=== PATIENT | male | born 1950 | race Caucasian/White ===

== ENCOUNTER 2016-12-10 10:59 | Emergency (ER) | payer MEDICARE, OTHER ==
[~2016-12-10] VITALS: Ht 182.9 cm; Wt 77.0 kg
[2016-12-10] VITALS (8 sets, daily range): BP systolic 138–156; BP diastolic 72–87; PULSE 71–84; RESP 16; TEMP 97.7–97.9; O2SAT 98–100
[2016-12-10] MEDS ORDERED: ONDANSETRON HCL 4 MG/2 ML VIAL IVP ONE (11:15)
[2016-12-10] MEDS ORDERED: DIPHTH/TETANUS/ACEL PERTUSSIS (BOOSTER) 0.5 ML VIAL/PFS IM ONE (11:15)
[2016-12-10] MEDS ORDERED: MORPHINE SULFATE 4 MG/ML INJ IV ONE (11:15)
[2016-12-10] MEDS ORDERED: ceFAZolin 2 GM PREMIX 50 ML IV ONE (11:15)
[2016-12-10] MEDS: SODIUM CHLORIDE 0.9% FLUSH 5 ML FLUSH IVF PRN ×3 (11:25→12:47)
--- NOTE | 2016-12-10 11:27 | PD ---
HPI . Right thumb injury Chief Complaint: Laceration/Skin Injury Time Seen by Provider: 11:05 Travel History International Travel<30 days: No Contact w/Intl Traveler<30days: No History of Present Illness HPI Patient presents immediately status post taking his right thumb. A table saw. He was wearing a glove. He does not know the date of his last tetanus shot. He denies any known drug allergies. History of diet-controlled diabetes. [facility] Social History Tobacco Use: No Allergies-Medications (Allergen,Severity, Reaction): Coded Allergies: Clindamycin (Verified Allergy, Severe, Anaphylaxis, 12/10/16) Reported Meds & Prescriptions Reported Meds & Active Scripts Active No Active Prescriptions or Reported Medications Review of Systems Except as stated in HPI: all other systems reviewed are Neg Musculoskeletal: Positive: Arthralgias (right thumb) Skin: Positive Other (wound, right thumb) Physical Exam Narrative GENERAL: Appropriately concerned. SKIN: Pale and diaphoretic. HEAD: Atraumatic. Normocephalic. EYES: Pupils equal and round. ENT: No nasal bleeding or discharge. Mucous membranes pink and moist. NECK: Trachea midline. CARDIOVASCULAR: Regular rate and rhythm. RESPIRATORY: No accessory muscle use. GASTROINTESTINAL: Abdomen soft, non-tender, nondistended. MUSCULOSKELETAL: Right thumb is amputated at the IP joint. Bleeding is controlled. We have the distal portion of thumb moistened and on ice. NEUROLOGICAL: Awake and alert. No obvious cranial nerve deficits. Motor grossly within normal limits. Normal speech. PSYCHIATRIC: Appropriate mood and affect; insight and judgment normal. Data Data Last Documented VS Vital Signs Date Time Temp Pulse Resp B/P Pulse Ox O2 Delivery O2 Flow Rate FiO2 12/10/16 11:50 75 16 153/87 99 Room Air 12/10/16 10:59 97.7 Orders Basic Metabolic Panel (Bmp) (12/10/16 11:05) Complete Blood Count With Diff (12/10/16 11:05) Prothrombin Time / Inr (Pt) (12/10/16 11:05) Act Partial Throm Time (Ptt) (12/10/16 11:05) Iv Access Insert/Monitor (12/10/16 11:05) Ecg Monitoring (12/10/16 11:05) Oximetry (12/10/16 11:05) Oxygen Administration (12/10/16 11:05) Cefazolin 2 Gm Premix (Ancef 2 Gm Premix (12/10/16 11:15) Morphine Inj (Morphine Inj) (12/10/16 11:15) Ondansetron Inj (Zofran Inj) (12/10/16 11:15) Flkb-Xho-Iklumc (Booster) Inj (Boostrix (12/10/16 11:15) Sodium Chloride 0.9% Flush (Ns Flush) (12/10/16 11:15) Finger (Jjq7fud) (12/10/16 11:07) Hydromorphone Pf Inj (Dilaudid Pf Inj) (12/10/16 11:45) Labs Laboratory Tests Test 12/10/16 11:05 White Blood Count 7.2 TH/MM3 Red Blood Count 5.69 MIL/MM3 Hemoglobin 12.6 GM/DL Hematocrit 39.2 % Mean Corpuscular Volume 68.9 FL Mean Corpuscular Hemoglobin 22.1 PG Mean Corpuscular Hemoglobin 32.1 % Concent Red Cell Distribution Width 13.2 % Platelet Count 220 TH/MM3 Mean Platelet Volume 9.2 FL Neutrophils (%) (Auto) 39.3 % Lymphocytes (%) (Auto) 50.5 % Monocytes (%) (Auto) 6.9 % Eosinophils (%) (Auto) 2.1 % Basophils (%) (Auto) 1.2 % Neutrophils # (Auto) 2.8 TH/MM3 Lymphocytes # (Auto) 3.6 TH/MM3 Monocytes # (Auto) 0.5 TH/MM3 Eosinophils # (Auto) 0.2 TH/MM3 Basophils # (Auto) 0.1 TH/MM3 CBC Comment AUTO DIFF Differential Comment AUTO DIFF CONFIRMED Target Cells 1+ Ovalocytes 1+ Prothrombin Time 11.0 SEC Prothromb Time International 1.0 RATIO Ratio Activated Partial 20.8 SEC Thromboplast Time Sodium Level 141 MEQ/L Potassium Level 3.4 MEQ/L Chloride Level 102 MEQ/L Carbon Dioxide Level 25.7 MEQ/L Anion Gap 13 MEQ/L Blood Urea Nitrogen 15 MG/DL Creatinine 1.30 MG/DL Estimat Glomerular Filtration 55 ML/MIN Rate Random Glucose 138 MG/DL Calcium Level 9.0 MG/DL MDM Medical Decision Making Medical Screen Exam Complete: Yes Emergency Medical Condition: Yes Differential Diagnosis Differential diagnosis includes amputation of the right thumb with or without a viable distal portion of the thumb. Narrative Course Patient presents with an amputated right thumb at the IP joint. Dr. Gillis was immediately contacted. He feels that the patient needs to be transferred to a facility which can do a reimplantation. Dr. Mesa at [facility] will see the patient. He does not believe that the thumb can successfully be reimplanted. But, he is willing to look. He has requested that the patient be transferred to the medicine service. Those arrangements have been made. The patient has been made aware that successful reimplantation is not likely. Physician Communication Physician Communication Dr. Gillis suggested transfer to [facility]. I spoke with Dr. Mesa who feels that successful replantation is not likely. He asks that I transfer the patient to medicine with him consulting. I have subsequently spoken with Dr. Kim who will be the accepting physician. Diagnosis Primary Impression: Amputation of right thumb Qualified Code: S68.011A - Amputation of right thumb, initial encounter Scripts No Active Prescriptions or Reported Meds Disposition: 70 TRANSFER TO OTHER FACILITY Condition: Stable Mary Castanon MD Dec 10, 2016 11:27
--- NOTE | 2016-12-10 11:35 | RADHPO ---
EXAM DATE/TIME: 12/10/2016 11:17 [place] COMPARISON: No previous studies available for comparison. INDICATIONS : Right 1st digit ampuation due to saw. MEDICAL HISTORY : Diabetic. SURGICAL HISTORY : None. ENCOUNTER: Initial ACUITY: 1 day PAIN SCORE: 10/10 LOCATION: Right first digit/hand FINDINGS: 4 views of the right reveal acute amputation involving the distal phalanx. A few bone fragments remai n from the base of that phalanx. The middle phalanx appears intact as does the metacarpal bone. There is soft tissue amputation as well. No radiopaque foreign body. CONCLUSION: Amputation of the distal phalanx as detailed above. Manas Mcmanus Jr., MD on December 10, 2016 at 11:29 Board Certified Radiologist. This report was verified electronically.
[2016-12-10 11:44] LABS: AUTOMATED NEUTROPHIL # 2.8 TH/MM3 (1.8-7.7); BASOPHIL # 0.1 TH/MM3 (0-0.2); BASOPHIL % 1.2 % (0.0-2.0); EOSINOPHIL # 0.2 TH/MM3 (0-0.4); EOSINOPHIL % 2.1 % (0.0-4.0); HEMATOCRIT 39.2 % (39.0-51.0); LYMPH % 50.5 % (9.0-44.0); LYMPHOCYTE # 3.6 TH/MM3 (1.0-4.8); MEAN CELL VOLUME 68.9 FL (80.0-100.0); MEAN CORPUSCULAR HEMOGLOBIN 22.1 PG (27.0-34.0); MEAN CORPUSCULAR HGB CONC 32.1 % (32.0-36.0); MONO % 6.9 % (0.0-8.0); NEUT % 39.3 % (16.0-70.0); PLATELET COUNT 220 TH/MM3 (150-450); RED BLOOD COUNT 5.69 MIL/MM3 (4.50-5.90); RED CELL DISTRIBUTION WIDTH 13.2 % (11.6-17.2); WHITE BLOOD COUNT 7.2 TH/MM3 (4.0-11.0)
[2016-12-10] MEDS ORDERED: HYDROmorphone HCL PF 2 MG/ML VIAL IV PUSH ONE (11:45)
[2016-12-10 11:46] LABS: HEMO FLAGS AUTO DIFF
[2016-12-10 11:52] LABS: POTASSIUM 3.4 MEQ/L (3.5-5.1)
[2016-12-10 11:55] LABS: BICARBONATE 25.7 MEQ/L (21.0-32.0)
[2016-12-10 12:02] LABS: APTT (PATIENT) 20.8 SEC (24.3-30.1)
[2016-12-10 12:11] LABS: OVALOCYTES 1+ (NORMAL); SCAN/DIFF AUTO DIFF CONFIRMED; TARGET CELLS 1+ (NORMAL)
[2016-12-10] MEDS ORDERED: ONDANSETRON HCL 4 MG/2 ML VIAL IV PUSH ONE (12:30)
== END 2016-12-10 19:07 | disposition short-term general hospital (02) ==
LOC: PHED 10:59
DX: S68.021A Partial traumatic metacarpophalangeal amputation of right thumb, initial encounter (principal); E11.9 Type 2 diabetes mellitus without complications; R61 Generalized hyperhidrosis; Z23 Encounter for immunization; W29.8XXA Contact with other powered hand tools and household machinery, initial encounter; Y99.8 Other external cause status
CPT/HCPCS: 73140; 80048; 85025; 85610; 85730; 90471; 90715; 96365; 96375; 96376; 99284; J0690; J1170; J2270; J2405